=== PATIENT | male | born 1955 | race Caucasian/White ===

== ENCOUNTER → 2016-12-09 | Outpatient (CLI) | payer OTHER ==
[~2016-12-09] MED LIST: ALAVERT10 M1 PO; ALDACTONE100 MG PO; ALDACTONE25 M1 PO; ALDACTONE50 MG PO; AZO-SULFISOXAZO1 TA1 PO; BACTRIM DS 8001 TAB PO; CALCIUM600 M2 PO; CARAFATE1 G1 PO; CEPHULAC10 GM/15 M PO; CIPRO750 MG PO; CLARITIN10 MG PO; COZAAR100 MG PO; COZAAR25 MG PO; Carafate1 GM PO; Duoneb 3ML 3 MG/3 ML INH; FERROUS SULFAT325 M1 PO; FOLIC ACID1 MG PO; FUROSEMIDE40 MG PO; HEPTALAC10 GM/15 M PO; K-PHOS500 MG PO; LACTULOSE10 GM/15 M PO; LASIX20 MG PO; LASIX40 MG PO; LEVOTHYROXINE0.1 M1 PO; LOPID600 MG PO; LOSARTAN POTASS1 TA4 PO; MIRALAX17 GM/PACK PO; OYSTER CALCIUM1 TA1 PO; POLYETHYLENE; POLYETHYLENE GL1 OI1; PROAIR HFA0.09 MG/AC INH; PROTONIX20 MG PO; SODIUM BICARBO650 MG PO; SPIRONOLACTONE50 M1 PO; SYNTHROID,LEV100 MCG PO; VENTOLIN 02.5 MG/3 M INH; VITAMIN D50000 I1 PO; VITAMIN D50000 I2 PO; XIFAXAN550 MG PO; [UNRECOGNIZED DRUG - OTHER] PO
[2016-12-09 12:16] LABS: BASO # 0.1 10*3/uL (0.0-0.1); BASO % 1.1 % (0.0-1.0); EOS # 0.2 10*3/uL (0.0-0.4); EOS % 3.7 % (1.0-4.0); HEMATOCRIT 41.4 % (42.0-52.0); LYMPH # 1.3 10*3/uL (1.3-4.4); LYMPH % 29.1 % (27.0-41.0); MEAN CELL VOLUME 95.4 fl (80.0-94.0); MEAN CORPUSCULAR HGB 32.3 pg (27.0-31.0); MEAN CORPUSCULAR HGB CONC 33.8 g/dl (33.0-37.0); MEAN PLATELET VOLUME 12.4 fl (9.6-12.3); MONO # 0.4 10*3/uL (0.1-1.0); MONO % 9.3 % (3.0-9.0); NEUT # 2.6 10*3/uL (2.3-7.9); NEUT % 56.6 % (47.0-73.0); PLATELET COUNT AUTOMATED 67 10*3/uL (130-400); RED BLOOD COUNT 4.34 10*6/uL (4.50-5.90); WHITE BLOOD COUNT 4.5 10*3/uL (4.8-10.8)
[2016-12-09 12:30] LABS: ALBUMIN 3.2 gm/dl (3.1-4.5); ALKALINE PHOSPHATASE 112 U/L (45-117); BUN 21 mg/dl (7-24); CARBON DIOXIDE 20 mmol/L (21-32); CHLORIDE 113 mmol/L (98-107); CHOLESTEROL 169 mg/dL (<200); EST GLOM FILT AFRICAN AMERICAN > 60 ml/min; GLUCOSE 70 mg/dL (65-99); HDL CHOLESTEROL 108 mg/dl (40-60); LDL CHOLESTEROL 49 mg/dL (9-159); POTASSIUM 3.9 mmol/L (3.5-5.1); SGOT/AST 36 IU/L (3-35); SGPT/ALT 30 U/L (12-78); SODIUM 143 mmol/L (136-145); TOTAL PROTEIN 7.1 gm/dL (6.4-8.2); TRIGLYCERIDES 60 mg/dl (<150); VLDL CHOLESTEROL 12 mg/dL (6-40)
[2016-12-09 12:36] LABS: FREE T4 1.19 ng/dl (0.76-1.46)
[2016-12-09 14:26] LABS: VITAMIN D, 25-HYDROXY 30.2 ng/mL (30-100)
[2016-12-09 14:27] LABS: FOLIC ACID > 24.00 ng/mL (>5.38)
== END | disposition home or self-care (01) ==
LOC: LAB 11:44
PROVIDERS: Internal Medicine
DX: Z13.21 Encounter for screening for nutritional disorder (principal); Z13.220 Encounter for screening for lipoid disorders; Z13.1 Encounter for screening for diabetes mellitus; E55.9 Vitamin D deficiency, unspecified; R53.81 Other malaise

== ENCOUNTER 2017-11-01 11:33 | Inpatient (IN) | payer OTHER ==
[~2017-11-01] VITALS: Ht 193 cm; Wt 108.0 kg
--- NOTE | ~2017-11-01 | WRIGHTHP ---
[place], [place] PATIENT HISTORY AND PHYSICAL EXAM NAME: LUIS DRISCOLL UNIT #: [id number] ROOM: 415 DOCTOR: ARIE CAOLAINEY BIRTHDATE: [birth year] DOS: 11/01/2017 HISTORY OF PRESENT ILLNESS: The patient comes in with severe abdominal pain for about 3 weeks' duration. He denies having any chest pains, palpitation. He has had slight nausea. Denies having any diarrhea, any fever or chills. The patient was seen in the office recently, was ordered CAT scan, but because of continued discomfort, he decided to come into the Emergency Room. He denies having any complaints this morning. He feels much better. Denies any chest pains, palpitations or shortness of breath. PAST MEDICAL HISTORY: Significant for: 1. Last hospitalization in 2013 with alcoholic liver disease and hepatic encephalopathy. 2. Esophageal varices with history of gastrointestinal bleed. 3. Hepatorenal syndrome in the past. 4. Cirrhosis of the liver. 5. Hypothyroidism. 6. History of pancreatitis. 7. Benign hypertension. MEDICATIONS: He is currently on are folic acid 1 mg daily; Lasix 40 daily; levothyroxine 0.1 mg daily; loratadine 10 daily p.r.n.; Protonix 40 daily, was just recently increased; propranolol 10 daily. SOCIAL HISTORY: Nonsmoker. He did have a heavy alcohol usage problem. He was advised to quit drinking and he did stop drinking the hard liquor, but we found out that he still drinks 2-3 cans of beer. PHYSICAL EXAMINATION: GENERAL: He is awake and alert and oriented. VITAL SIGNS: Graphic trend shows a pressure of 115/51, pulse of 60, respirations 18, temperature 98. CHEST: Lungs are clear. HEART: Regular. ABDOMEN: Soft. EXTREMITIES: Without any edema. ASSESSMENT AND PLAN: 1. Abdominal pain with alcoholic gastritis. The patient is ordered IV Protonix and Carafate. Dr. Fallon has been consulted for endoscopy and after the endoscopy is done, the patient should be able to go home. 2. Benign hypertension, controlled. Continue propranolol. 3. History of esophageal varices and ascites, which seems to be resolving. He is on Lasix now. [place], [place] PATIENT HISTORY AND PHYSICAL EXAM NAME: LUIS DRISCOLL UNIT #: [id number] ROOM: [facility] DOCTOR: LAINEY SARGENT MD BIRTHDATE: [birth year] LAINEY SARGENT MD CM:HISPHYS:PATIENT HISTORY AND PHYSICAL EXAMINATION 4 LAINEY SARGENT MD 11/02/17 0839 interface
--- NOTE | ~2017-11-01 | O ---
[place], [place] OPERATIVE NOTE NAME: LUIS DRISCOLL UNIT #: [id number] ROOM: 415 DOCTOR: KISHAN CAOHIGINIO BIRTHDATE: [birth year] DOS: 11/03/2017 GASTROINTESTINAL ENDOSCOPIC REPORT INDICATIONS: This is a 62-year-old patient who presented with a chief complaint of sudden abdominal pain a few days and then it subsides immediately after he was admitted to the hospital. No hematemesis. No hematochezia. No new development the day after hospitalization initially. He had pancreatitis with elevation of lipase of 2900 plus and subsequently he had followup amylase and lipase done, amylase normalized, lipase 530 today. He has extensive history of alcohol consumption. He has cirrhosis of the liver, pancreatic atrophy, portal hypertension, esophageal varicosity history, band ligation history. He has been thrombocytopenic chronically because of underlying liver disease. His platelet has been as low as 40s during this hospitalization. PAST MEDICAL HISTORY: Otherwise, hypothyroidism, hypertension. SOCIAL HISTORY: Still alcohol consumer. LABORATORY DATA: His comprehensive metabolic panel has been reviewed. Bilirubin 1.8. Chemistry within normal limits. PROCEDURE: Today's procedure part of investigation is panendoscopy. PREMEDICATION: Propofol. SCOPE: Olympus forward-viewing gastroscope Q10 video. REPORT: After putting the patient in left lateral position and application of lubricant to the scope, the scope was introduced. Thereafter, under direct visualization, I advanced through the length of esophagus without difficulty. Some residual esophageal varicosities were identified. Previous scars of band ligation were noticed. Gastric pouch was entered. Gastritis, gastric erosions seen. No biopsy obtained due to the fact that the patient's platelets about 40,000. Duodenal bulb, second and third part within normal limits. The patient extubated, tolerated the procedure well. IMPRESSION: 1. Residual esophageal varicosity. 2. Known history of cirrhosis. 3. Thrombocytopenia. 4. Gastritis, gastric erosions which could be secondary to ETOH. PLAN AND DISCUSSION: Protonix 40 mg once a day would suffice. CT scan of the abdomen results were reviewed. He does not have any blood per stool. Therefore, there is no acute concern about findings in the abdomen. He does not have abdominal pain today. Urine is positive for THC. Thank you very much indeed. [place], [place] OPERATIVE NOTE NAME: LUIS DRISCOLL UNIT #: [id number] ROOM: [facility] DOCTOR: KISHAN CAO,HIGINIO BIRTHDATE: [birth year] HIGINIO HOLLEY MD CM:OPRECORD:OPERATIVE NOTE [id number] HIGINIO HOLLEY MD 11/03/17 1654 interface
--- NOTE | ~2017-11-01 | PR ---
[place], [place] PROGRESS NOTE NAME: LUIS DRISCOLL UNIT #: [id number] ROOM: 415 DOCTOR: LAINEY SARGENT MD BIRTHDATE: [birth year] DOS: 11/03/2017 SUBJECTIVE: The patient feels good and is not having any complaints today. OBJECTIVE: VITAL SIGNS: Blood pressure is 147/73, pulse of 58, respirations 14, temperature 98.0. LUNGS: Diminished breath sounds, clear. HEART: Regular. ABDOMEN: Obese, soft, nontender. EXTREMITIES: Without any edema. ASSESSMENT AND PLAN: 1. Acute alcoholic gastritis. The patient is stable and improved. Advised not to drink any more beer, but on Carafate and Protonix doing well, so endoscopy this morning. 2. Alcoholic liver disease with esophageal varices without any evidence of GI bleed. Labs none available this morning. 3. Hypokalemia. Supplementation was given yesterday. 4. Abnormally elevated lipase level with a possibility of pancreatitis from alcohol usage. No acute pancreatitis was seen. CT scan just shows chronic pancreatitis. So, repeat lipase and amylase level will be ordered today. After the endoscopy is done, the patient should be able to go home. LAINEY SARGENT MD CM:PNTRANS [id number] LAINEY SARGETN MD 11/03/17 1350 interface
--- NOTE | ~2017-11-01 | DS ---
[place], [place] DISCHARGE SUMMARY [id number] UNIT #: [id number] ROOM: 415 DOCTOR: LAINEY SARGENT MD BIRTHDATE: [birth year] DOS: 11/03/2017 DIAGNOSES: 1. Acute pancreatitis, patient with chronic pancreatitis. 2. Continued alcohol abuse. 3. Cirrhosis of liver. 4. Esophageal varices with history of GI bleed. 5. Benign hypertension. 6. Hypothyroidism. MEDICATIONS ON DISCHARGE: Will be Protonix 40 mg daily, Carafate 1 gram twice a day, propranolol 10 daily, Lasix 40 daily p.r.n., levothyroxine 0.1 mg daily, folic acid 1 mg daily, loratadine 10 mg daily p.r.n. HOSPITAL COURSE: This patient is very well known to us, presents with complaints of abdominal pain. CT of the abdomen showed chronic pancreatitis, but his lipase was elevated in the 2000 range. The patient stated that he was still drinking beer. He was advised to stop. He also may have mild acute pancreatitis for which the Protonix was given IV and increase to twice a day. Dr. Fallon was consulted. Endoscopy was to be performed today. The patient is otherwise not having any complaints. I am awaiting the amylase and lipase level this morning and if it is normal, the plan is to discharge him to home today to follow up as an outpatient. LAINEY SARGENT MD CM:ANDREA [id number] LAINEY SARGENT MD 11/03/17 1049 interface
[2017-11-01 11:34] VITALS: BP 171/89
[2017-11-01] MEDS ORDERED: DICYCLOMINE HCL10 MG PO (11:48)
[2017-11-01 12:00] VITALS: BP 163/85
[2017-11-01 12:03] LABS: BASO % 0.6 % (0.0-1.0); EOS % 0.3 % (1.0-4.0); HEMATOCRIT 45.8 % (42.0-52.0); HEMOGLOBIN 15.1 g/dl (14.0-18.0); LYMPH # 1.2 10*3/uL (1.3-4.4); MEAN CELL VOLUME 97.7 fl (80.0-94.0); MEAN CORPUSCULAR HGB 32.2 pg (27.0-31.0); MEAN PLATELET VOLUME 11.7 fl (9.6-12.3); MONO # 0.5 10*3/uL (0.1-1.0); MONO % 8.3 % (3.0-9.0); NEUT # 4.7 10*3/uL (2.3-7.9); NEUT % 72.5 % (47.0-73.0); PLATELET COUNT AUTOMATED 72 10*3/uL (130-400); RED BLOOD COUNT 4.69 10*6/uL (4.50-5.90); RED CELL DISTRI WIDTH 13.7 % (0-14.5); WHITE BLOOD COUNT 6.5 10*3/uL (4.8-10.8)
[2017-11-01 12:13] LABS: ACT PARTIAL THROMBO TIME 23.8 SECONDS (20.8-31.5); INTERNATIONAL NORM RATIO 1.1 (2.0-3.5)
[2017-11-01 12:32] LABS: ALBUMIN 3.4 gm/dl (3.1-4.5); ALKALINE PHOSPHATASE 100 U/L (45-117); BUN 21 mg/dl (7-24); CHLORIDE 103 mmol/L (98-107); CREATININE 1.27 mg/dL (0.70-1.30); POTASSIUM 3.8 mmol/L (3.5-5.1); SGOT/AST 24 IU/L (3-35); SGPT/ALT 21 U/L (12-78); SODIUM 136 mmol/L (136-145); TOTAL PROTEIN 7.7 gm/dL (6.4-8.2)
[2017-11-01 12:33] LABS: ETHYL ALCOHOL < 3.0 mg/dl (<3); LIPASE 2938 U/L (73-393)
[2017-11-01 12:36] LABS: TROPONIN I < 0.015 ng/ml (<0.045)
[2017-11-01] MEDS ORDERED: PROPRANOLOL HCL10 MG PO (13:25)
[2017-11-01] MEDS ORDERED: PROTONIX40 MG PO (13:25)
[2017-11-01 16:00] VITALS: BP 144/77
[2017-11-01 20:00] VITALS: BP 126/80
[2017-11-02] VITALS: BP 115/51
[2017-11-02 00:05] LABS: BILIRUBIN 1+ (NEGATIVE); BLOOD NEGATIVE (NEGATIVE); CLARITY CLEAR (CLEAR); COLOR YELLOW (YELLOW); GLUCOSE NEGATIVE (NEGATIVE); KETONE NEGATIVE (NEGATIVE); LEUKO ESTERASE NEGATIVE (NEGATIVE); NITRITE NEGATIVE (NEGATIVE); PH 6.5 (5.0-9.0)
[2017-11-02 00:18] LABS: URINE AMPHETAMINES < 1000 (1000ng/ml); URINE BARBITURATES < 200 (200ng/ml); URINE BENZODIAZEPINES < 200 (200ng/ml); URINE CANNABINOIDS (THC) > 50 (50ng/ml); URINE COCAINE < 300 (300ng/ml); URINE METHADONE < 300 (300ng/ml); URINE OPIATES < 300 (300ng/ml)
[2017-11-02 00:21] LABS: URINE PHENCYCLIDINE < 25 (25ng/ml)
[2017-11-02 00:22] LABS: WBC 0-2 wbc/hpf (0-5)
[2017-11-02 05:55] LABS: ALBUMIN 2.7 gm/dl (3.1-4.5); ALKALINE PHOSPHATASE 76 U/L (45-117); BILIRUBIN, DIRECT 0.4 mg/dL (0.0-0.2); BUN 16 mg/dl (7-24); CHLORIDE 106 mmol/L (98-107); CREATININE 1.05 mg/dL (0.70-1.30); POTASSIUM 3.4 mmol/L (3.5-5.1); SGOT/AST 20 IU/L (3-35); SGPT/ALT 17 U/L (12-78); SODIUM 139 mmol/L (136-145); TOTAL PROTEIN 6.1 gm/dL (6.4-8.2)
[2017-11-02 06:15] LABS: BASO % 0.5 % (0.0-1.0); EOS # 0.1 10*3/uL (0.0-0.4); EOS % 2.1 % (1.0-4.0); LYMPH # 1.1 10*3/uL (1.3-4.4); LYMPH % 28.6 % (27.0-41.0); MEAN CELL VOLUME 97.2 fl (80.0-94.0); MEAN CORPUSCULAR HGB 32.5 pg (27.0-31.0); MEAN CORPUSCULAR HGB CONC 33.4 g/dl (33.0-37.0); MEAN PLATELET VOLUME 12.4 fl (9.6-12.3); MONO # 0.4 10*3/uL (0.1-1.0); MONO % 10.8 % (3.0-9.0); NEUT # 2.2 10*3/uL (2.3-7.9); NEUT % 57.7 % (47.0-73.0); RED BLOOD COUNT 3.88 10*6/uL (4.50-5.90); RED CELL DISTRI WIDTH 13.5 % (0-14.5); WHITE BLOOD COUNT 3.8 10*3/uL (4.8-10.8)
[2017-11-02 06:47] LABS: HEMATOCRIT 37.7 % (42.0-52.0); HEMOGLOBIN 12.6 g/dl (14.0-18.0); PLATELET COUNT AUTOMATED 43 10*3/uL (130-400)
[2017-11-02 08:00] VITALS: BP 138/68
[2017-11-02 12:00] VITALS: BP 140/67
[2017-11-02 16:00] VITALS: BP 150/70
[2017-11-02 20:00] VITALS: BP 103/44
[2017-11-03 00:15] VITALS: BP 147/73
[2017-11-03 08:00] VITALS: BP 152/84
[2017-11-03] MEDS ORDERED: CARAFATE1 G1 PO (08:15)
[2017-11-03 08:44] LABS: LIPASE 530 U/L (73-393)
[2017-11-03 08:46] LABS: BUN 11 mg/dl (7-24); CHLORIDE 109 mmol/L (98-107); CREATININE 1.13 mg/dL (0.70-1.30); POTASSIUM 3.6 mmol/L (3.5-5.1); SODIUM 140 mmol/L (136-145)
[2017-11-03 12:00] VITALS: BP 156/76
[2017-11-03 14:56] VITALS: BP 150/71
[2017-11-03 15:45] VITALS: BP 111/71
[2017-11-03 16:00] VITALS: BP 117/69; BP 137/59
== END 2017-11-03 17:10 | disposition home or self-care (01) | DRG 438 ==
LOC: ED 11:33 → EDHOLD 12:04 → 4E 12:04
PROVIDERS: Emergency Medicine; Internal Medicine
PROC: 0DJ08ZZ Inspection of Upper Intestinal Tract, Via Natural or Artificial Opening Endoscopic (ICD-10-PCS; principal; 2017-11-03)
DX: K85.90 Acute pancreatitis without necrosis or infection, unspecified (principal); K76.7 Hepatorenal syndrome; E43 Unspecified severe protein-calorie malnutrition; D69.6 Thrombocytopenia, unspecified; R82.2 Biliuria; I85.10 Secondary esophageal varices without bleeding; K25.9 Gastric ulcer, unspecified as acute or chronic, without hemorrhage or perforation; K86.1 Other chronic pancreatitis; K29.20 Alcoholic gastritis without bleeding; K70.30 Alcoholic cirrhosis of liver without ascites; E80.6 Other disorders of bilirubin metabolism; E87.6 Hypokalemia; D53.9 Nutritional anemia, unspecified; R00.1 Bradycardia, unspecified; R73.9 Hyperglycemia, unspecified; E03.9 Hypothyroidism, unspecified; I10 Essential (primary) hypertension; E78.5 Hyperlipidemia, unspecified; F12.10 Cannabis abuse, uncomplicated; F10.20 Alcohol dependence, uncomplicated; Z87.891 Personal history of nicotine dependence; Z80.7 Family history of other malignant neoplasms of lymphoid, hematopoietic and related tissues; Z80.0 Family history of malignant neoplasm of digestive organs; Z83.3 Family history of diabetes mellitus; Z82.49 Family history of ischemic heart disease and other diseases of the circulatory system; Z68.29 Body mass index [BMI] 29.0-29.9, adult

== ENCOUNTER 2019-09-24 14:56 | Emergency (ER) | payer OTHER ==
[~2019-09-24] VITALS: Ht 193 cm; Wt 90.3 kg
[~2019-09-24 14:56] MED LIST changes: +DICYCLOMINE HCL10 MG PO; +PROPRANOLOL HCL10 MG PO; +PROTONIX40 MG PO
[2019-09-24] MEDS ORDERED: LISINOPRIL10 M1 PO (15:22)
[2019-09-24 15:26] LABS: BASO % 0.6 % (0.0-1.0); EOS # 0.1 10*3/uL (0.0-0.4); EOS % 1.3 % (1.0-4.0); HEMATOCRIT 42.6 % (42.0-52.0); HEMOGLOBIN 13.9 g/dl (14.0-18.0); LYMPH % 18.4 % (27.0-41.0); MEAN CELL VOLUME 91.2 fl (80.0-94.0); MEAN CORPUSCULAR HGB 29.8 pg (27.0-31.0); MEAN CORPUSCULAR HGB CONC 32.6 g/dl (33.0-37.0); MEAN PLATELET VOLUME 12.3 fl (9.6-12.3); MONO # 0.5 10*3/uL (0.1-1.0); MONO % 8.8 % (3.0-9.0); NEUT # 3.9 10*3/uL (2.3-7.9); NEUT % 70.9 % (47.0-73.0); PLATELET COUNT AUTOMATED 75 10*3/uL (130-400); RED BLOOD COUNT 4.67 10*6/uL (4.50-5.90); RED CELL DISTRI WIDTH 14.9 % (0-14.5); WHITE BLOOD COUNT 5.4 10*3/uL (4.8-10.8)
[2019-09-24 15:41] LABS: ALBUMIN 3.2 gm/dl (3.1-4.5); ALKALINE PHOSPHATASE 135 U/L (45-117); BUN 9 mg/dl (7-24); CHLORIDE 106 mmol/L (98-107); CREATININE 1.07 mg/dL (0.70-1.30); LIPASE 503 U/L (73-393); POTASSIUM 3.3 mmol/L (3.5-5.1); SGOT/AST 21 IU/L (3-35); SGPT/ALT 24 U/L (12-78); SODIUM 137 mmol/L (136-145); TOTAL PROTEIN 7.3 gm/dL (6.4-8.2)
[2019-09-24 15:41] LABS: BILIRUBIN NEGATIVE (NEGATIVE); BLOOD NEGATIVE (NEGATIVE); CLARITY SL CLOUDY (CLEAR); COLOR YELLOW (YELLOW); GLUCOSE NEGATIVE (NEGATIVE); KETONE NEGATIVE (NEGATIVE); LEUKO ESTERASE NEGATIVE (NEGATIVE); NITRITE NEGATIVE (NEGATIVE); PH 7.5 (5.0-9.0)
[2019-09-24 15:48] LABS: BACTERIA 2+; EPITHELIAL CELLS 0-2; HYALINE CAST TNTC; RBC 0-2 rbc/hpf (0-2); WBC 0-2 wbc/hpf (0-5)
[2019-09-24] MEDS ORDERED: TRAMADOL HCL50 MG PO ×2 (18:19→18:23)
== END 2019-09-24 19:01 | disposition home or self-care (01) ==
LOC: ED 14:56
PROVIDERS: Nurse Practitioner Family
DX: K85.90 Acute pancreatitis without necrosis or infection, unspecified (principal); E87.6 Hypokalemia; Z79.899 Other long term (current) drug therapy; Z87.891 Personal history of nicotine dependence

== ENCOUNTER 2019-10-01 11:43 | Inpatient (IN) | payer OTHER ==
[~2019-10-01] VITALS: Ht 193 cm; Wt 90.7 kg
[~2019-10-01 11:43] MED LIST changes: +LISINOPRIL10 M1 PO; +TRAMADOL HCL50 MG PO
[2019-10-01 11:55] VITALS: BP 162/108
[2019-10-01 12:32] LABS: BASO % 0.7 % (0.0-1.0); EOS # 0.1 10*3/uL (0.0-0.4); EOS % 1.9 % (1.0-4.0); HEMATOCRIT 39.3 % (42.0-52.0); HEMOGLOBIN 13.1 g/dl (14.0-18.0); MEAN CELL VOLUME 89.3 fl (80.0-94.0); MEAN CORPUSCULAR HGB 29.8 pg (27.0-31.0); MEAN CORPUSCULAR HGB CONC 33.3 g/dl (33.0-37.0); MEAN PLATELET VOLUME 12.8 fl (9.6-12.3); MONO # 0.4 10*3/uL (0.1-1.0); MONO % 6.1 % (3.0-9.0); NEUT # 4.2 10*3/uL (2.3-7.9); PLATELET COUNT AUTOMATED 104 10*3/uL (130-400); WHITE BLOOD COUNT 5.7 10*3/uL (4.8-10.8)
[2019-10-01 12:48] LABS: ACT PARTIAL THROMBO TIME 27.9 SECONDS (20.0-32.1); ALKALINE PHOSPHATASE 246 U/L (45-117); BUN 13 mg/dl (7-24); CHLORIDE 110 mmol/L (98-107); CREATININE 1.05 mg/dL (0.70-1.30); INTERNATIONAL NORM RATIO 1.1 (2.0-3.5); LIPASE 133 U/L (73-393); SGOT/AST 56 IU/L (3-35); SGPT/ALT 48 U/L (12-78); SODIUM 138 mmol/L (136-145); TOTAL PROTEIN 7.2 gm/dL (6.4-8.2)
[2019-10-01 12:51] LABS: POTASSIUM 4.3 mmol/L (3.5-5.1); TROPONIN I < 0.015 ng/ml (<0.045)
[2019-10-01 13:02] VITALS: BP 158/98
[2019-10-01 14:30] VITALS: BP 147/63
[2019-10-01 15:45] VITALS: BP 151/72
[2019-10-01 16:24] LABS: BACTERIA TRACE; BILIRUBIN NEGATIVE (NEGATIVE); BLOOD NEGATIVE (NEGATIVE); CLARITY SL CLOUDY (CLEAR); COLOR YELLOW (YELLOW); EPITHELIAL CELLS 0-2; GLUCOSE NEGATIVE (NEGATIVE); KETONE NEGATIVE (NEGATIVE); LEUKO ESTERASE NEGATIVE (NEGATIVE); NITRITE NEGATIVE (NEGATIVE); SPECIFIC GRAVITY 1.005 (1.005-1.030); UROBILINOGEN 0.2 E.U./dl (0.2-1.0)
[2019-10-01 17:10] VITALS: BP 147/62
[2019-10-01] MEDS ORDERED: LEVOTHYROXINE100 MC1 PO (18:10)
[2019-10-01] MEDS ORDERED: TRAMADOL HCL50 MG PO (18:11)
[2019-10-01 19:50] VITALS: BP 156/74
[2019-10-02] VITALS: BP 126/61
[2019-10-02 06:16] LABS: EOS # 0.1 10*3/uL (0.0-0.4); EOS % 3.1 % (1.0-4.0); HEMOGLOBIN 11.5 g/dl (14.0-18.0); LYMPH # 1.3 10*3/uL (1.3-4.4); LYMPH % 31.3 % (27.0-41.0); MEAN CELL VOLUME 89.5 fl (80.0-94.0); MEAN CORPUSCULAR HGB 29.4 pg (27.0-31.0); MEAN CORPUSCULAR HGB CONC 32.9 g/dl (33.0-37.0); MEAN PLATELET VOLUME 12.5 fl (9.6-12.3); MONO # 0.4 10*3/uL (0.1-1.0); MONO % 9.3 % (3.0-9.0); NEUT # 2.3 10*3/uL (2.3-7.9); NEUT % 55.1 % (47.0-73.0); RED BLOOD COUNT 3.91 10*6/uL (4.50-5.90); RED CELL DISTRI WIDTH 15.3 % (0-14.5); WHITE BLOOD COUNT 4.2 10*3/uL (4.8-10.8)
[2019-10-02 06:28] LABS: PLATELET COUNT AUTOMATED 66 10*3/uL (130-400)
[2019-10-02 06:46] LABS: BUN 11 mg/dl (7-24); CHLORIDE 118 mmol/L (98-107); CREATININE 0.95 mg/dL (0.70-1.30); LIPASE 99 U/L (73-393); POTASSIUM 3.4 mmol/L (3.5-5.1); SODIUM 146 mmol/L (136-145)
[2019-10-02 08:00] VITALS: BP 146/72
[2019-10-02 12:00] VITALS: BP 124/54
[2019-10-02 16:00] VITALS: BP 143/65
[2019-10-02 20:00] VITALS: BP 141/66
[2019-10-03] VITALS: BP 108/80
[2019-10-03 06:14] LABS: BASO % 1.1 % (0.0-1.0); EOS # 0.1 10*3/uL (0.0-0.4); EOS % 3.2 % (1.0-4.0); HEMATOCRIT 34.5 % (42.0-52.0); LYMPH # 0.9 10*3/uL (1.3-4.4); LYMPH % 24.5 % (27.0-41.0); MEAN CELL VOLUME 92.5 fl (80.0-94.0); MEAN CORPUSCULAR HGB 29.5 pg (27.0-31.0); MEAN CORPUSCULAR HGB CONC 31.9 g/dl (33.0-37.0); MEAN PLATELET VOLUME 11.9 fl (9.6-12.3); MONO # 0.3 10*3/uL (0.1-1.0); NEUT # 2.4 10*3/uL (2.3-7.9); NEUT % 63.9 % (47.0-73.0); PLATELET COUNT AUTOMATED 56 10*3/uL (130-400); RED BLOOD COUNT 3.73 10*6/uL (4.50-5.90); RED CELL DISTRI WIDTH 15.4 % (0-14.5); WHITE BLOOD COUNT 3.7 10*3/uL (4.8-10.8)
[2019-10-03 06:38] LABS: BUN 10 mg/dl (7-24); CHLORIDE 120 mmol/L (98-107); CREATININE 0.92 mg/dL (0.70-1.30); POTASSIUM 3.7 mmol/L (3.5-5.1); SODIUM 146 mmol/L (136-145)
[2019-10-03 08:00] VITALS: BP 146/78
[2019-10-03] MEDS ORDERED: LACTULOSE20 GM/30 M PO (08:36)
== END 2019-10-03 11:31 | disposition home or self-care (01) | DRG 433 ==
LOC: ED 11:43 → 4E 17:50 → EDHOLD 17:50 → 4E 18:09
PROVIDERS: Emergency Medicine; ADMIT Internal Medicine
DX: K70.30 Alcoholic cirrhosis of liver without ascites (principal); K76.6 Portal hypertension; I85.10 Secondary esophageal varices without bleeding; E87.2 Acidosis; K86.1 Other chronic pancreatitis; K72.90 Hepatic failure, unspecified without coma; E87.6 Hypokalemia; I10 Essential (primary) hypertension; E03.9 Hypothyroidism, unspecified; Z87.891 Personal history of nicotine dependence; Z80.0 Family history of malignant neoplasm of digestive organs; Z80.7 Family history of other malignant neoplasms of lymphoid, hematopoietic and related tissues

== ENCOUNTER → 2020-12-24 | Outpatient (CLI) | payer OTHER ==
[~2020-12-24] MED LIST changes: +LACTULOSE20 GM/30 M PO; +LEVOTHYROXINE100 MC1 PO
[2020-12-24 14:57] LABS: HEMATOCRIT 39.4 % (42.0-52.0); MEAN CELL VOLUME 100.5 fl (80.0-94.0); MEAN CORPUSCULAR HGB 33.4 pg (27.0-31.0); MEAN CORPUSCULAR HGB CONC 33.2 g/dl (33.0-37.0); MEAN PLATELET VOLUME 12.4 fl (9.6-12.3); PLATELET COUNT AUTOMATED 48 10*3/uL (130-400); RED BLOOD COUNT 3.92 10*6/uL (4.50-5.90); RED CELL DISTRI WIDTH 14.7 % (0-14.5); WHITE BLOOD COUNT 5.7 10*3/uL (4.8-10.8)
[2020-12-24 15:24] LABS: PLATELET SUFFICIENCY LOW (NORMAL); TOTAL CELLS COUNTED 100 #CELLS
[2020-12-24 15:30] LABS: ALBUMIN 2.8 gm/dl (3.1-4.5); ALKALINE PHOSPHATASE 106 U/L (45-117); BUN 15 mg/dl (7-24); CHLORIDE 108 mmol/L (98-107); CHOLESTEROL 174 mg/dL (<200); FREE T4 1.07 ng/dl (0.76-1.46); LDL CHOLESTEROL 46 mg/dL (9-159); POTASSIUM 3.3 mmol/L (3.5-5.1); SGOT/AST 61 IU/L (3-35); SGPT/ALT 64 U/L (12-78); SODIUM 139 mmol/L (136-145); TRIGLYCERIDES 36 mg/dl (<150)
[2020-12-24 15:52] LABS: VITAMIN D, 25-HYDROXY 34.6 ng/mL (30-100)
== END | disposition home or self-care (01) ==
LOC: LAB 14:19
PROVIDERS: ATTEND Internal Medicine
DX: Z12.5 Encounter for screening for malignant neoplasm of prostate (principal); I10 Essential (primary) hypertension; E03.9 Hypothyroidism, unspecified; E55.9 Vitamin D deficiency, unspecified; Z13.1 Encounter for screening for diabetes mellitus; Z00.01 Encounter for general adult medical examination with abnormal findings; Z13.220 Encounter for screening for lipoid disorders; Z13.21 Encounter for screening for nutritional disorder

== ENCOUNTER → 2022-01-06 | Outpatient (CLI) | payer MEDICARE | END | disposition home or self-care (01) | LOC: RAD 10:32 | PROVIDERS: ATTEND Internal Medicine | DX: M25.522 Pain in left elbow (principal); R22.32 Localized swelling, mass and lump, left upper limb ==

== ENCOUNTER → 2022-03-11 | Outpatient (CLI) | payer MEDICARE ==
[2022-03-11 12:06] LABS: BASO % 1.4 % (0.0-1.0); EOS # 0.2 10*3/uL (0.0-0.4); EOS % 7.1 % (1.0-4.0); HEMATOCRIT 34.6 % (42.0-52.0); LYMPH # 0.7 10*3/uL (1.3-4.4); LYMPH % 22.7 % (27.0-41.0); MEAN CORPUSCULAR HGB 33.9 pg (27.0-31.0); MEAN CORPUSCULAR HGB CONC 32.9 g/dl (33.0-37.0); MEAN PLATELET VOLUME 11.1 fl (9.6-12.3); MONO # 0.3 10*3/uL (0.1-1.0); MONO % 9.8 % (3.0-9.0); NEUT # 1.7 10*3/uL (2.3-7.9); NEUT % 58.7 % (47.0-73.0); PLATELET COUNT AUTOMATED 59 10*3/uL (130-400); RED BLOOD COUNT 3.36 10*6/uL (4.50-5.90); RED CELL DISTRI WIDTH 14.4 % (0-14.5)
== END | disposition home or self-care (01) ==
LOC: LAB 11:45
PROVIDERS: ATTEND Nurse Practitioner Family
DX: D69.6 Thrombocytopenia, unspecified (principal)

== ENCOUNTER → 2022-03-18 | Outpatient (CLI) | payer MEDICARE ==
[2022-03-18 12:30] LABS: HEMATOCRIT 35.7 % (42.0-52.0); MEAN CELL VOLUME 103.2 fl (80.0-94.0); MEAN CORPUSCULAR HGB 33.8 pg (27.0-31.0); MEAN CORPUSCULAR HGB CONC 32.8 g/dl (33.0-37.0); MEAN PLATELET VOLUME 11.1 fl (9.6-12.3); PLATELET COUNT AUTOMATED 45 10*3/uL (130-400); RED BLOOD COUNT 3.46 10*6/uL (4.50-5.90); RED CELL DISTRI WIDTH 14.7 % (0-14.5); WHITE BLOOD COUNT 2.8 10*3/uL (4.8-10.8)
[2022-03-18 12:31] LABS: MANUAL DIFF REFLEX YES
[2022-03-18 12:57] LABS: BASOPHILS 1 % (0-1); PLATELET SUFFICIENCY LOW (NORMAL); TOTAL CELLS COUNTED 100 #CELLS
== END | disposition home or self-care (01) ==
LOC: LAB 12:13
PROVIDERS: ATTEND Nurse Practitioner Family
DX: D69.6 Thrombocytopenia, unspecified (principal)

== ENCOUNTER → 2022-03-25 | Outpatient (CLI) | payer MEDICARE ==
[2022-03-25 11:25] LABS: EOS # 0.2 10*3/uL (0.0-0.4); EOS % 6.3 % (1.0-4.0); HEMATOCRIT 35.7 % (42.0-52.0); LYMPH # 0.7 10*3/uL (1.3-4.4); LYMPH % 22.8 % (27.0-41.0); MEAN CELL VOLUME 103.2 fl (80.0-94.0); MEAN CORPUSCULAR HGB 34.4 pg (27.0-31.0); MEAN CORPUSCULAR HGB CONC 33.3 g/dl (33.0-37.0); MEAN PLATELET VOLUME 11.2 fl (9.6-12.3); MONO # 0.3 10*3/uL (0.1-1.0); MONO % 8.6 % (3.0-9.0); NEUT # 1.9 10*3/uL (2.3-7.9); PLATELET COUNT AUTOMATED 50 10*3/uL (130-400); RED BLOOD COUNT 3.46 10*6/uL (4.50-5.90); RED CELL DISTRI WIDTH 15.1 % (0-14.5)
== END | disposition home or self-care (01) ==
LOC: LAB 11:11
PROVIDERS: ATTEND Nurse Practitioner Family
DX: D69.6 Thrombocytopenia, unspecified (principal)

== ENCOUNTER → 2023-01-05 | Outpatient (CLI) | payer MEDICARE ==
[2023-01-05 09:57] LABS: BASO # 0.1 10*3/uL (0.0-0.1); BASO % 1.4 % (0.0-1.0); EOS # 0.1 10*3/uL (0.0-0.4); LYMPH # 0.9 10*3/uL (1.3-4.4); MEAN CELL VOLUME 103.4 fl (80.0-94.0); MEAN CORPUSCULAR HGB 35.3 pg (27.0-31.0); MEAN CORPUSCULAR HGB CONC 34.1 g/dl (33.0-37.0); MEAN PLATELET VOLUME 11.2 fl (9.6-12.3); MONO # 0.5 10*3/uL (0.1-1.0); NEUT # 2.8 10*3/uL (2.3-7.9); NEUT % 63.4 % (47.0-73.0); PLATELET COUNT AUTOMATED 69 10*3/uL (130-400); RED BLOOD COUNT 3.77 10*6/uL (4.50-5.90); WHITE BLOOD COUNT 4.4 10*3/uL (4.8-10.8)
[2023-01-05 10:40] LABS: ALKALINE PHOSPHATASE 245 U/L (46-116); BUN 9 mg/dl (9-23); CHLORIDE 101 mmol/L (98-107); CHOLESTEROL 108 mg/dL (<200); LDL CHOLESTEROL 53 mg/dL (9-159); POTASSIUM 3.1 mmol/L (3.4-5.1); SGPT/ALT 33 U/L (10-49); TOTAL PROTEIN 6.6 gm/dL (6.0-8.0); TRIGLYCERIDES 93 mg/dl (<150)
== END | disposition home or self-care (01) ==
LOC: LAB 03:32 → US 09:00 → LAB 09:00
PROVIDERS: ATTEND Internal Medicine
DX: Z12.5 Encounter for screening for malignant neoplasm of prostate (principal); N50.819 Testicular pain, unspecified; N50.3 Cyst of epididymis; I10 Essential (primary) hypertension

== ENCOUNTER 2023-01-30 10:06 | Emergency (ER) | payer MEDICARE ==
[~2023-01-30] VITALS: Ht 193 cm; Wt 89.8 kg
== END 2023-01-30 13:50 | disposition home or self-care (01) ==
LOC: ED 10:06
DX: R18.8 Other ascites (principal); I10 Essential (primary) hypertension; E78.5 Hyperlipidemia, unspecified; E03.9 Hypothyroidism, unspecified; Z98.890 Other specified postprocedural states; Z87.891 Personal history of nicotine dependence; F12.90 Cannabis use, unspecified, uncomplicated

== ENCOUNTER → 2023-01-30 | Outpatient (CLI) | payer MEDICARE | END | disposition home or self-care (01) | LOC: CT 01:38 | PROVIDERS: ATTEND Internal Medicine | DX: K74.60 Unspecified cirrhosis of liver (principal); R18.8 Other ascites; M81.0 Age-related osteoporosis without current pathological fracture; I25.10 Atherosclerotic heart disease of native coronary artery without angina pectoris; M16.0 Bilateral primary osteoarthritis of hip; K40.90 Unilateral inguinal hernia, without obstruction or gangrene, not specified as recurrent ==

== ENCOUNTER → 2023-06-08 | Outpatient (CLI) | payer MEDICARE ==
[2023-06-08 12:25] LABS: BASO # 0.1 10*3/uL (0.0-0.1); BASO % 1.2 % (0.0-1.0); EOS # 0.1 10*3/uL (0.0-0.4); EOS % 1.9 % (1.0-4.0); HEMATOCRIT 36.1 % (42.0-52.0); LYMPH # 1.1 10*3/uL (1.3-4.4); LYMPH % 20.5 % (27.0-41.0); MEAN CELL VOLUME 106.5 fl (80.0-94.0); MEAN CORPUSCULAR HGB CONC 33.8 g/dl (33.0-37.0); MEAN PLATELET VOLUME 10.9 fl (9.6-12.3); MONO # 0.6 10*3/uL (0.1-1.0); MONO % 12.2 % (3.0-9.0); NEUT # 3.3 10*3/uL (2.3-7.9); NEUT % 63.8 % (47.0-73.0); PLATELET COUNT AUTOMATED 69 10*3/uL (130-400); RED BLOOD COUNT 3.39 10*6/uL (4.50-5.90); RED CELL DISTRI WIDTH 14.7 % (0-14.5); WHITE BLOOD COUNT 5.2 10*3/uL (4.8-10.8)
[2023-06-08 12:45] LABS: ACT PARTIAL THROMBO TIME 30.1 SECONDS (20.0-32.1)
[2023-06-08 12:50] LABS: ALKALINE PHOSPHATASE 157 U/L (46-116); BUN 10 mg/dl (9-23); CHLORIDE 106 mmol/L (98-107); CHOLESTEROL 114 mg/dL (<200); FREE T4 1.46 ng/dl (0.89-1.76); LDL CHOLESTEROL 51 mg/dL (9-159); POTASSIUM 3.7 mmol/L (3.4-5.1); SGPT/ALT 22 U/L (5-49); TOTAL PROTEIN 6.7 gm/dL (6.0-8.0); TRIGLYCERIDES 82 mg/dl (<150)
[2023-06-08 12:57] LABS: VITAMIN D, 25-HYDROXY 23.5 ng/mL (30-100)
[2023-06-08 14:04] VITALS: BP 105/75
== END | disposition home or self-care (01) ==
LOC: LAB 00:53 → EDSTATUS 11:00
PROVIDERS: ATTEND Internal Medicine
DX: R18.8 Other ascites (principal)

== ENCOUNTER 2023-06-23 09:29 | Inpatient (IN) | payer MEDICARE ==
[~2023-06-23] VITALS: Ht 187.9 cm; Wt 93.6 kg
[2023-06-23 09:34] VITALS: BP 153/83
[2023-06-23] MEDS ORDERED: LASIX20 MG PO (10:02)
[2023-06-23] MEDS ORDERED: ALDACTONE25 M1 PO (10:03)
[2023-06-23] MEDS ORDERED: TAMSULOSIN HCL0.4 MG PO (10:04)
[2023-06-23] MEDS ORDERED: LACTULOSE10 GM/151 PO (10:04)
[2023-06-23] MEDS ORDERED: HYDROXYZINE HCL25 MG PO (10:06)
[2023-06-23] MEDS ORDERED: PROPRANOLOL HYD10 MG PO (10:06)
[2023-06-23 10:07] LABS: BASO % 0.6 % (0.0-1.0); EOS # 0.1 10*3/uL (0.0-0.4); EOS % 1.9 % (1.0-4.0); HEMATOCRIT 36.3 % (42.0-52.0); LYMPH # 1.5 10*3/uL (1.3-4.4); LYMPH % 32.1 % (27.0-41.0); MEAN CELL VOLUME 103.1 fl (80.0-94.0); MEAN CORPUSCULAR HGB 34.1 pg (27.0-31.0); MEAN CORPUSCULAR HGB CONC 33.1 g/dl (33.0-37.0); MEAN PLATELET VOLUME 11.8 fl (9.6-12.3); MONO # 0.4 10*3/uL (0.1-1.0); MONO % 8.3 % (3.0-9.0); NEUT # 2.7 10*3/uL (2.3-7.9); NEUT % 57.1 % (47.0-73.0); PLATELET COUNT AUTOMATED 68 10*3/uL (130-400); RED BLOOD COUNT 3.52 10*6/uL (4.50-5.90); RED CELL DISTRI WIDTH 13.8 % (0-14.5); WHITE BLOOD COUNT 4.7 10*3/uL (4.8-10.8)
[2023-06-23 10:19] LABS: ACT PARTIAL THROMBO TIME 33.6 SECONDS (20.0-32.1)
[2023-06-23 10:40] LABS: ALKALINE PHOSPHATASE 130 U/L (46-116); BUN 12 mg/dl (9-23); CHLORIDE 107 mmol/L (98-107); ETHYL ALCOHOL < 3.0 mg/dl (<3); POTASSIUM 3.4 mmol/L (3.4-5.1); SGPT/ALT 32 U/L (5-49); TOTAL PROTEIN 6.3 gm/dL (6.0-8.0)
[2023-06-23 10:57] LABS: BILIRUBIN 1+ (Negative); BLOOD Negative (Negative); CLARITY Clear (Clear); COLOR Dark Yellow (Yellow); GLUCOSE Negative (Negative); KETONE Trace (Negative); LEUKO ESTERASE Trace (Negative); NITRITE Negative (Negative); PH 5.5 (4.5-8.0)
[2023-06-23 11:04] LABS: URINE AMPHETAMINES Negative (1000ng/ml); URINE BARBITURATES Negative (200ng/ml); URINE BENZODIAZEPINES Negative (200ng/ml); URINE CANNABINOIDS (THC) Positive (50ng/ml); URINE COCAINE Negative (300ng/ml); URINE METHADONE Negative (300ng/ml); URINE OPIATES Negative (300ng/ml); URINE PHENCYCLIDINE Negative (25ng/ml)
[2023-06-23 11:06] LABS: BACTERIA 4+; CALCIUM OXALATE CRYSTALS 3+
[2023-06-23 16:34] VITALS: BP 125/61
[2023-06-23 17:23] VITALS: BP 101/86
[2023-06-23 20:00] VITALS: BP 149/87
[2023-06-24] VITALS: BP 129/68
[2023-06-24 05:22] LABS: BUN 14 mg/dl (9-23); CHLORIDE 109 mmol/L (98-107); POTASSIUM 3.3 mmol/L (3.4-5.1)
[2023-06-24 06:44] LABS: BASO % 0.7 % (0.0-1.0); EOS # 0.1 10*3/uL (0.0-0.4); EOS % 1.1 % (1.0-4.0); HEMATOCRIT 36.1 % (42.0-52.0); LYMPH # 1.5 10*3/uL (1.3-4.4); LYMPH % 28.1 % (27.0-41.0); MEAN CELL VOLUME 103.1 fl (80.0-94.0); MEAN CORPUSCULAR HGB 34.3 pg (27.0-31.0); MEAN CORPUSCULAR HGB CONC 33.2 g/dl (33.0-37.0); MEAN PLATELET VOLUME 11.6 fl (9.6-12.3); MONO # 0.5 10*3/uL (0.1-1.0); MONO % 9.4 % (3.0-9.0); NEUT # 3.3 10*3/uL (2.3-7.9); NEUT % 60.3 % (47.0-73.0); PLATELET COUNT AUTOMATED 74 10*3/uL (130-400); WHITE BLOOD COUNT 5.4 10*3/uL (4.8-10.8)
[2023-06-24 08:00] VITALS: BP 127/74
[2023-06-24 12:00] VITALS: BP 90/66
[2023-06-24 16:00] VITALS: BP 118/67
[2023-06-24 20:00] VITALS: BP 157/87
[2023-06-25] VITALS: BP 117/83
[2023-06-25 06:28] LABS: BASO % 0.5 % (0.0-1.0); EOS # 0.1 10*3/uL (0.0-0.4); EOS % 1.7 % (1.0-4.0); HEMATOCRIT 32.1 % (42.0-52.0); LYMPH # 1.3 10*3/uL (1.3-4.4); LYMPH % 32.8 % (27.0-41.0); MEAN CELL VOLUME 105.2 fl (80.0-94.0); MEAN CORPUSCULAR HGB 34.4 pg (27.0-31.0); MEAN CORPUSCULAR HGB CONC 32.7 g/dl (33.0-37.0); MEAN PLATELET VOLUME 10.7 fl (9.6-12.3); MONO # 0.5 10*3/uL (0.1-1.0); MONO % 11.4 % (3.0-9.0); NEUT # 2.2 10*3/uL (2.3-7.9); NEUT % 53.4 % (47.0-73.0); PLATELET COUNT AUTOMATED 53 10*3/uL (130-400); RED BLOOD COUNT 3.05 10*6/uL (4.50-5.90); RED CELL DISTRI WIDTH 13.7 % (0-14.5)
[2023-06-25 07:26] LABS: ALKALINE PHOSPHATASE 110 U/L (46-116); BUN 13 mg/dl (9-23); CHLORIDE 110 mmol/L (98-107); POTASSIUM 2.9 mmol/L (3.4-5.1); SGPT/ALT 29 U/L (5-49); TOTAL PROTEIN 5.6 gm/dL (6.0-8.0)
[2023-06-25 08:00] VITALS: BP 129/62
[2023-06-25] MEDS ORDERED: SYNTHROID137 MCG PO (08:14)
[2023-06-25] MEDS ORDERED: LACTULOSE20 GM/30 M PO (08:14)
[2023-06-25] MEDS ORDERED: K-TAB20 MEQ PO (08:15)
[2023-06-25] MEDS ORDERED: CEFUROXIME AXE250 MG PO (08:15)
[2023-06-25 12:00] VITALS: BP 132/82
[2023-06-25 12:55] LABS: BUN 12 mg/dl (9-23); CHLORIDE 109 mmol/L (98-107); POTASSIUM 3.1 mmol/L (3.4-5.1)
== END 2023-06-25 14:00 | disposition home or self-care (01) | DRG 442 ==
LOC: ED 09:29 → EDHOLD 12:23 → 5E 16:05
PROVIDERS: Family Medicine; ADMIT Internal Medicine; ATTEND Internal Medicine
DX: K76.82 Hepatic encephalopathy (principal); K76.6 Portal hypertension; N39.0 Urinary tract infection, site not specified; N17.9 Acute kidney failure, unspecified; K70.30 Alcoholic cirrhosis of liver without ascites; E87.6 Hypokalemia; E03.9 Hypothyroidism, unspecified; Z20.822 Contact with and (suspected) exposure to COVID-19; F12.90 Cannabis use, unspecified, uncomplicated; Z79.899 Other long term (current) drug therapy; Z80.8 Family history of malignant neoplasm of other organs or systems; Z80.0 Family history of malignant neoplasm of digestive organs